=== PATIENT | male | born 1995 | race Hispanic/Latino ===

== ENCOUNTER 2022-11-27 16:55 | Inpatient (IN) | payer MEDICAID, OTHER ==
[~2022-11-27] VITALS: Ht 160 cm; Wt 93.8 kg
[2022-11-27 17:22] LABS: HEMATOCRIT 44.1 % (42-54); MEAN CORPUSCULAR HEMOGLOBIN 29.1 pg (27.0-33.0); MEAN CORPUSCULAR HGB CONC 33.1 g/dL (32.0-36.0); PLATELET COUNT (AUTO) 344 K/uL (130-400); RED BLOOD CELL COUNT(AUTO) 5.01 MIL/uL (4.50-6.20); RED CELL DISTRIBUTION WIDTH 13.1 % (11.0-15.5); WHITE BLOOD COUNT (AUTO) 11.5 K/uL (4.8-10.8)
[2022-11-27 17:31] LABS: CREATININE 0.9 mg/dL (0.5-1.5); POTASSIUM 3.9 mmol/L (3.5-5.1)
[2022-11-27 17:36] LABS: BILIRUBIN,DIRECT 0.1 mg/dL (0.0-0.3); TOTAL PROTEIN, SERUM 7.2 g/dL (6.0-8.3)
[2022-11-27 17:56] LABS: B-TYPE NATRIURETIC PEPTIDE < 5 pg/mL (0-100)
[2022-11-27] MEDS ORDERED: GUAIFENESIN-DM 200/20 MG 10 ML PO PRN (18:00)
[2022-11-27] MEDS ORDERED: ACETAMINOPHEN 325 MG TAB PO PRN (18:00)
[2022-11-27] MEDS ORDERED: DIPHENHYDRAMINE HCL 25 MG CAPSULE PO PRN (18:00)
[2022-11-27] MEDS ORDERED: ZOLPIDEM TARTRATE 5 MG TAB PO PRN (18:00)
[2022-11-27] MEDS ORDERED: LACTULOSE 20 GM/30 ML UDCUP PO PRN (18:00)
[2022-11-27] MEDS ORDERED: ONDANSETRON 4MG INJ IVP PRN (18:00)
[2022-11-27 20:06] LABS: APPEARANCE,URINE CLEAR (CLEAR); BILIRUBIN,URINE NEGATIVE (NEGATIVE); COLOR,URINE LIGHT-YELLOW (YELLOW); GLUCOSE, URINE (UA) NEGATIVE (NEGATIVE); KETONES,URINE NEGATIVE (NEGATIVE); LEUKOCYTE ESTERASE ,URINE NEGATIVE Leu/uL (NEGATIVE); NITRATE,URINE NEGATIVE (NEGATIVE); OCCULT BLOOD,URINE NEGATIVE (NEGATIVE); PROTEIN,URINE NEGATIVE (NEGATIVE); UROBILINOGEN,URINE 0.2 mg/dL (0.2-1.0)
[2022-11-27] MEDS ORDERED: MEROPENEM 1 GM VIAL ONE (20:22)
[2022-11-27] MEDS: MEROPENEM 1 GM in 0.9%NACL 100ML 100 ML IV SCH (20:24)
[2022-11-27] MEDS: AZITHROMYCIN 500MG+NS 250ML IVPB SCH (20:24)
[2022-11-27] MEDS: SOLU-MEDROL 40MG VIAL IVP SCH (20:24)
[2022-11-27 22:04] VITALS: BP 151/88; PULSE 101; RESP 19
[2022-11-27] MEDS: DEXTROSE 5 %-0.45 % NACL 1,000 ML IV SCH (22:25)
[2022-11-27 23:00] VITALS: BP 151/88; PULSE 101; RESP 19
[2022-11-27] MEDS: IPRATROPIUM/ALBUTEROL SULFATE 3 ML SOLUTION IH SCH (23:24)
[2022-11-27 23:25] VITALS: PULSE 84; PULSE 85; RESP 19; RESP 20; O2SAT 95
[2022-11-28] VITALS (11 sets, daily range): BP systolic 118–152; BP diastolic 63–87; PULSE 79–118; RESP 18–27; O2SAT 93–97
[2022-11-28 04:53] LABS: HEMATOCRIT 45.3 % (42-54); MEAN CORPUSCULAR HEMOGLOBIN 28.7 pg (27.0-33.0); MEAN CORPUSCULAR HGB CONC 32.9 g/dL (32.0-36.0); MEAN CORPUSCULAR VOLUME 87.1 fL (79-99); RED BLOOD CELL COUNT(AUTO) 5.2 MIL/uL (4.50-6.20); RED CELL DISTRIBUTION WIDTH 12.7 % (11.0-15.5)
[2022-11-28 05:09] LABS: BILIRUBIN,DIRECT 0.1 mg/dL (0.0-0.3); CREATININE 0.9 mg/dL (0.5-1.5); POTASSIUM 4.1 mmol/L (3.5-5.1); TOTAL PROTEIN, SERUM 7.4 g/dL (6.0-8.3)
[2022-11-28] MEDS: MEROPENEM 1 GM in 0.9%NACL 100ML 100 ML IV SCH ×3 (05:11→20:26)
[2022-11-28] MEDS: IPRATROPIUM/ALBUTEROL SULFATE 3 ML SOLUTION IH SCH ×3 (07:04→21:34)
[2022-11-28] MEDS: SOLU-MEDROL 40MG VIAL IVP SCH ×2 (09:15→20:26)
[2022-11-28] MEDS ORDERED: COMPOUND IV MISC 1 EACH IVSOLN MISC PRN (12:00)
[2022-11-28] MEDS: DEXTROSE 5 %-0.45 % NACL 1,000 ML IV SCH (13:55)
[2022-11-28] MEDS: AZITHROMYCIN 500MG+NS 250ML IVPB SCH (20:26)
[2022-11-29] VITALS (12 sets, daily range): BP systolic 113–156; BP diastolic 68–87; PULSE 75–109; RESP 18–24; O2SAT 97–98
[2022-11-29] MEDS: DEXTROSE 5 %-0.45 % NACL 1,000 ML IV SCH ×3 (00:40→20:42)
[2022-11-29 03:54] LABS: BASOPHILS % (AUTO) 0.1 % (0.0-5.0); HEMATOCRIT 42.7 % (42-54); LYMPHOCYTES % (AUTO) 5.3 % (21.0-51.0); MEAN CORPUSCULAR HEMOGLOBIN 29.2 pg (27.0-33.0); MEAN CORPUSCULAR HGB CONC 33.3 g/dL (32.0-36.0); MEAN CORPUSCULAR VOLUME 87.7 fL (79-99); MONOCYTES % (AUTO) 3.3 % (3.0-13.0); NEUTROPHILS % (AUTO) 90.6 % (40.0-77.0); PLATELET COUNT (AUTO) 456 K/uL (130-400); RED BLOOD CELL COUNT(AUTO) 4.87 MIL/uL (4.50-6.20); WHITE BLOOD COUNT (AUTO) 25.4 K/uL (4.8-10.8)
[2022-11-29 04:08] LABS: ALBUMIN 2.8 g/dL (3.5-5.0); CREATININE 0.9 mg/dL (0.5-1.5); POTASSIUM 4.4 mmol/L (3.5-5.1); TOTAL PROTEIN, SERUM 6.7 g/dL (6.0-8.3)
[2022-11-29] MEDS: MEROPENEM 1 GM in 0.9%NACL 100ML 100 ML IV SCH ×3 (05:08→20:41)
[2022-11-29] MEDS: IPRATROPIUM/ALBUTEROL SULFATE 3 ML SOLUTION IH SCH ×3 (07:37→22:46)
[2022-11-29] MEDS: SOLU-MEDROL 40MG VIAL IVP SCH (08:32)
[2022-11-29] MEDS: AZITHROMYCIN 500MG+NS 250ML IVPB SCH (20:41)
[2022-11-30] VITALS (14 sets, daily range): BP systolic 113–139; BP diastolic 59–74; PULSE 78–115; RESP 18–20; O2SAT 94–98
[2022-11-30] MEDS: MEROPENEM 1 GM in 0.9%NACL 100ML 100 ML IV SCH ×3 (04:29→21:07)
[2022-11-30 05:18] LABS: BASOPHILS % (AUTO) 0.4 % (0.0-5.0); EOSINOPHILS % (AUTO) 0.1 % (0.0-8.0); HEMATOCRIT 39.8 % (42-54); LYMPHOCYTES % (AUTO) 18.9 % (21.0-51.0); MEAN CORPUSCULAR HEMOGLOBIN 29.7 pg (27.0-33.0); MEAN CORPUSCULAR HGB CONC 33.2 g/dL (32.0-36.0); MEAN CORPUSCULAR VOLUME 89.6 fL (79-99); MONOCYTES % (AUTO) 8.2 % (3.0-13.0); NEUTROPHILS % (AUTO) 71.6 % (40.0-77.0); PLATELET COUNT (AUTO) 392 K/uL (130-400); RED BLOOD CELL COUNT(AUTO) 4.44 MIL/uL (4.50-6.20); RED CELL DISTRIBUTION WIDTH 13.2 % (11.0-15.5); WHITE BLOOD COUNT (AUTO) 21.5 K/uL (4.8-10.8)
[2022-11-30 05:28] LABS: CREATININE 0.9 mg/dL (0.5-1.5); POTASSIUM 3.9 mmol/L (3.5-5.1)
[2022-11-30] MEDS: IPRATROPIUM/ALBUTEROL SULFATE 3 ML SOLUTION IH SCH ×3 (06:50→22:31)
[2022-11-30] MEDS: PREDNISONE 20 MG TABLET PO SCH (09:42)
[2022-11-30] MEDS: DEXTROSE 5 %-0.45 % NACL 1,000 ML IV SCH (20:05)
[2022-11-30] MEDS: AZITHROMYCIN 500MG+NS 250ML IVPB SCH (20:05)
[2022-12-01 04:19] VITALS: BP 112/66; PULSE 76; RESP 22
[2022-12-01 04:53] LABS: BASOPHILS % (AUTO) 0.5 % (0.0-5.0); EOSINOPHILS % (AUTO) 0.8 % (0.0-8.0); HEMATOCRIT 42.8 % (42-54); LYMPHOCYTES % (AUTO) 33.3 % (21.0-51.0); MEAN CORPUSCULAR HEMOGLOBIN 29.2 pg (27.0-33.0); MEAN CORPUSCULAR HGB CONC 32.7 g/dL (32.0-36.0); MEAN CORPUSCULAR VOLUME 89.2 fL (79-99); MONOCYTES % (AUTO) 8.2 % (3.0-13.0); NEUTROPHILS % (AUTO) 56.2 % (40.0-77.0); PLATELET COUNT (AUTO) 393 K/uL (130-400); RED CELL DISTRIBUTION WIDTH 13.4 % (11.0-15.5); WHITE BLOOD COUNT (AUTO) 16.8 K/uL (4.8-10.8)
[2022-12-01] MEDS: MEROPENEM 1 GM in 0.9%NACL 100ML 100 ML IV SCH (05:08)
[2022-12-01 05:25] LABS: ALBUMIN 2.7 g/dL (3.5-5.0); CREATININE 0.9 mg/dL (0.5-1.5); POTASSIUM 4.2 mmol/L (3.5-5.1); TOTAL PROTEIN, SERUM 6.2 g/dL (6.0-8.3)
[2022-12-01] MEDS: DEXTROSE 5 %-0.45 % NACL 1,000 ML IV SCH (06:00)
[2022-12-01] MEDS: IPRATROPIUM/ALBUTEROL SULFATE 3 ML SOLUTION IH SCH (06:00)
[2022-12-01 07:27] VITALS: PULSE 79; RESP 18; O2SAT 97
[2022-12-01 07:54] VITALS: BP 127/68; PULSE 77; RESP 20
[2022-12-01 08:00] VITALS: O2SAT 98
[2022-12-01] MEDS: PREDNISONE 20 MG TABLET PO SCH (08:17)
[2022-12-01 11:47] VITALS: BP 114/86; PULSE 68; RESP 18
== END 2022-12-01 13:30 | disposition home or self-care (01) | DRG 871 ==
LOC: EDH 16:55 → UNDOADMIN 16:56 → DIRECT 16:56 → 3AH 21:36
PROVIDERS: ADMIT Internal Medicine; ATTEND Internal Medicine
DX: A41.9 Sepsis, unspecified organism (principal); J18.9 Pneumonia, unspecified organism; J96.91 Respiratory failure, unspecified with hypoxia; L03.317 Cellulitis of buttock; J20.9 Acute bronchitis, unspecified; I10 Essential (primary) hypertension; T38.0X5A Adverse effect of glucocorticoids and synthetic analogues, initial encounter
CPT/HCPCS: 36415; 71250; 80048; 80053; 80076; 81003; 83880; 85025; 85027; 94640; 94664; 94760; 97039; G0378; J0456; J2185; J2920; G8980-CH; G8983-CH